=== PATIENT | male | born 1945 | race Caucasian/White ===

== ENCOUNTER 2017-02-07 20:27 | Emergency (ER) | payer MEDICARE, BC ==
--- NOTE | 2017-02-07 20:47 | UC ---
HPI Febrile Illness - HPI Summary HPI Summary: 71 YEAR OLD MALE PRESENTS WITH COMPLAINS OF FEVER, CHILLS, AND BODYACHES. - History of Current Complaint Time Seen by Provider: 02/07/17 20:47 Hx Obtained From: Patient Onset/Duration: Started Hours Ago Timing: Constant Initial Severity: Moderate Current Severity: Moderate Pain Scale Used: 0-10 Numeric - 2 Aggravating Factors: Nothing Alleviating Factors: Nothing - Allergy/Home Medications Allergies/Adverse Reactions: Allergies Allergy/AdvReac Type Severity Reaction Status Date / Time No Known Allergies Allergy Verified 02/07/17 20:48 Home Medications: Home Medications Ascorbic Acid TAB* [Vitamin C TAB*] 1,000 mg PO TID 02/07/17 [History Confirmed 02/07/17] Multiple Vitamins W/ Minerals [Preservision Areds 2 + Mu] 1 cap PO BID 02/07/17 [History Confirmed 02/07/17] PMH/Surg Hx/FS Hx/Imm Hx Endocrine/Hematology History: Reports: Hx Diabetes Cardiovascular History: Reports: Hx Hypertension - Surgical History Surgery Procedure, Year, and Place: cataracts, tumor removed from back, laminectomy of back, retinal detachment repair, umbilical hernia, L ankle fx repair - Social History Alcohol Use: Daily Alcohol Amount: 2-3 wine daily Substance Use Type: Reports: None Smoking Status (MU): Former Smoker Length of Time of Smoking/Using Tobacco: 10 yrs Have You Smoked in the Last Year: No Review of Systems Constitutional: Fever, Chills Skin: Negative Eyes: Negative ENT: Negative Respiratory: Negative Cardiovascular: Negative Gastrointestinal: Negative Genitourinary: Negative Motor: Negative Neurovascular: Negative Musculoskeletal: Negative Neurological: Headache, Weakness Psychological: Negative All Other Systems Reviewed And Are Negative: Yes Physical Exam Triage Information Reviewed: Yes Eye Exam: Normal ENT Exam: Normal Dental Exam: Normal Neck exam: Normal Neck: Positive: 1 Respiratory Exam: Normal Cardiovascular Exam: Normal Abdominal Exam: Normal Musculoskeletal Exam: Normal Neurological Exam: Normal Psychological Exam: Normal Skin Exam: Normal Course/Dx - Diagnoses Clinic Provider Diagnoses: UTI. FEVER. CHILLS Discharge - Discharge Plan Condition: Stable Disposition: HOME Prescriptions: Ciprofloxacin TAB* [Cipro 500 MG TAB*] 500 mg PO BID #28 tab Patient Education Materials: Prostatitis (ED), Urinary Tract Infection in Men ( ED) Referrals: Nirav Lopez MD [Primary Care Provider] - If Needed
[2017-02-07 20:48] VITALS: BP 137/55
[2017-02-07] MEDS ORDERED: Ciprofloxacin TAB* 500 MG PO ONE (21:50)
== END 2017-02-07 22:02 | disposition home or self-care (01) ==
LOC: UCCORT 20:27
DX: N39.0 Urinary tract infection, site not specified (principal); B96.89 Other specified bacterial agents as the cause of diseases classified elsewhere; R50.9 Fever, unspecified; E11.9 Type 2 diabetes mellitus without complications; I10 Essential (primary) hypertension; Z87.891 Personal history of nicotine dependence
CPT/HCPCS: 81003; 87077; 87086; 87186; 87502; 99212; A9270-GY; G0463

== ENCOUNTER 2017-02-28 10:34 | Emergency (ER) | payer MEDICARE, BC ==
[2017-02-28 11:08] VITALS: BP 131/60
--- NOTE | 2017-02-28 11:32 | UC ---
Ear Complaint HPI - HPI Summary HPI Summary: "For the last couple days I've been having intermittent headaches on LEFT side of head around my LEFT ear". Denies fever/chills. Took 2 tab aspirin this morning w/ pain relief from headache. No dizziness. Not light headed. No discharge from ear. No hearing loss . No neuro deficits. No URI Sx. (+) nasal congestion with PND. (+) a friend who is sick with cough. No vision changes. No changes in balance. Sx same as yesterday and not worsened. Pain lasts for short period of time and then go away. No related to head position or breathing [ End ] - History of Current Complaint Chief Complaint: UCGeneralIllness Stated Complaint: LEFT EAR PAIN/HEADACHE,ACHY Time Seen by Provider: 02/28/17 11:11 Hx Obtained From: Patient - Allergies/Home Medications Allergies/Adverse Reactions: Allergies Allergy/AdvReac Type Severity Reaction Status Date / Time No Known Allergies Allergy Verified 02/28/17 11:01 PMH/Surg Hx/FS Hx/Imm Hx Previously Healthy: Yes Endocrine History: Diabetes, Dyslipidemia Cardiovascular History: Hypertension GI/ History: Other - recent UTI Cipro completed Other GI/ History: neurogenic bladder - Surgical History Surgical History: Yes Surgery Procedure, Year, and Place: cataracts, tumor removed from back, laminectomy of back, retinal detachment repair, umbilical hernia, L ankle fx repair. 2006 SPINAL DECOMPRESSION/FUSION SURGERY-[facility]. history of Schwanoma and neurogenic bladder - Family History Known Family History: Positive: None, Other - mother breast cancer - Social History Occupation: Retired Lives: Alone Alcohol Use: Daily Alcohol Amount: 2-3 wine daily Substance Use Type: None Smoking Status (MU): Former Smoker Length of Time of Smoking/Using Tobacco: 10 yrs Have You Smoked in the Last Year: No When Did the Patient Quit Smoking/Using Tobacco: 1978 - Immunization History Most Recent Influenza Vaccination: NONE 2016 Review of Systems ENT: Ear Ache - left Neurological: Headache Is Patient Immunocompromised?: No All Other Systems Reviewed And Are Negative: Yes Physical Exam Triage Information Reviewed: Yes Appearance: Well-Appearing, No Pain Distress, Well-Nourished Vital Signs: Initial Vital Signs Temp 98 F 02/28/17 11:02 Pulse 56 02/28/17 11:02 Resp 18 09/15/17 11:02 BP 131/60 02/28/17 11:02 Pulse Ox 100 02/28/17 11:02 Vital Signs Reviewed: Yes Eye Exam: Normal ENT Exam: Normal ENT: Positive: Pharynx normal, Nasal congestion, TM dull - left. Negative: Tonsillar swelling, Tonsillar exudate Dental Exam: Normal Neck exam: Normal Neck: Positive: 1 Respiratory Exam: Normal Cardiovascular Exam: Normal Musculoskeletal Exam: Normal Neurological Exam: Normal Neurological: Positive: Alert, Muscle Tone Normal - left leg chronically weaker Psychological Exam: Normal Psychological: Positive: Normal Response To Family Skin Exam: Normal Ear Complaint Course/Dx - Course Course Of Treatment: No neuro deficits or red flags. no VILA or dizzyness. No numbness or slurred speech. He is aware if these Sx develop to go to ED . Start antihistamines at this time and fu with PCP - Differential Dx/Diagnosis Provider Diagnoses: Serous AOM Discharge - Discharge Plan Condition: Good Disposition: HOME Prescriptions: Diphenhydramine HCl [Benadryl Allergy 25 MG CAP] 25 mg PO BEDTIME #14 cap Loratadine [Claritin 10 MG CAP] 10 mg PO DAILY #14 cap Patient Education Materials: Serous Otitis Media (ED) Referrals: Nirav Lopez MD [Primary Care Provider] - 4 Days Additional Instructions: If your symptoms worsen then go to the Emergency room
== END 2017-02-28 11:45 | disposition home or self-care (01) ==
LOC: UCCORT 10:34
DX: H65.92 Unspecified nonsuppurative otitis media, left ear (principal)
CPT/HCPCS: 99212; G0463

== ENCOUNTER 2017-08-06 14:28 | Emergency (ER) | payer MEDICARE, BC ==
[2017-08-06 15:45] VITALS: BP 148/70
--- NOTE | 2017-08-06 16:46 | UC ---
Ear Complaint HPI - HPI Summary HPI Summary: Pt states at noon noticed a plastic ring missing from right hearing aide. Pt states concerned in his ear although does not feel it Pt did not stick any object in ear or try to remove no complaints Pt's medications reviewed this visit - History of Current Complaint Chief Complaint: UCEar Stated Complaint: RT EAR COMPLAINT Time Seen by Provider: 08/06/17 16:31 Hx Obtained From: Patient Onset/Duration: Sudden Onset Severity Currently: None Pain Intensity: 0 Pain Scale Used: 0-10 Numeric Aggravating Factors: FB - Allergies/Home Medications Allergies/Adverse Reactions: Allergies Allergy/AdvReac Type Severity Reaction Status Date / Time No Known Allergies Allergy Verified 08/06/17 15:45 Home Medications: Home Medications Amlodipine Besylate/Valsartan [Exforge 10-160 mg-] 1 tab PO DAILY 08/06/17 [ History Confirmed 08/06/17] Loratadine [Claritin 10 MG CAP] 10 mg PO DAILY PRN 08/06/17 [History Confirmed 08/06/17] PMH/Surg Hx/FS Hx/Imm Hx Previously Healthy: Yes - Surgical History Surgical History: Yes Surgery Procedure, Year, and Place: cataracts, tumor removed from back, laminectomy of back, retinal detachment repair, umbilical hernia, L ankle fx repair. 2005 SPINAL DECOMPRESSION/FUSION SURGERY-[facility]. history of Schwanoma and neurogenic bladder - Family History Known Family History: Positive: None, Other - mother breast cancer - Social History Occupation: Retired Lives: With Family Alcohol Use: None Alcohol Amount: 2-3 wine daily Substance Use Type: None Smoking Status (MU): Former Smoker Length of Time of Smoking/Using Tobacco: 10 yrs Have You Smoked in the Last Year: No When Did the Patient Quit Smoking/Using Tobacco: 1978 - Immunization History Most Recent Influenza Vaccination: NONE 2017 Review of Systems ENT: Other - concern for foreign body All Other Systems Reviewed And Are Negative: Yes Physical Exam Triage Information Reviewed: Yes Appearance: Well-Appearing, No Pain Distress, Well-Nourished Vital Signs: Initial Vital Signs Temp 97.8 F 08/06/17 15:41 Pulse 58 08/06/17 15:41 Resp 18 08/06/17 15:41 BP 148/70 08/06/17 15:41 Pulse Ox 96 08/06/17 15:41 Vital Signs Reviewed: Yes Eye Exam: Normal Eyes: Positive: Conjunctiva Clear ENT: Positive: Other - no foreign body in either canal scant cerumen removed small amout of cerumen right ear - no foreign body no erythema no drainage Respiratory: Positive: No respiratory distress, No accessory muscle use Ear Complaint Course/Dx - Course Course Of Treatment: pt concerned for retained fb in right ear from hearing aide. no fb not on exam with good, full visualization. reassuance. return precautions. pt comfortable and in agreement with plan - Differential Dx/Diagnosis Provider Diagnoses: foreign body right ear Discharge - Discharge Plan Condition: Stable Disposition: HOME Patient Education Materials: Ear Foreign Body (ED) Referrals: Nirav Lopez MD [Primary Care Provider] - Additional Instructions: The doctor that evaluated you did not identify any foreign body or hearing aid parts if you ear avoid sticking Qtips of other object in your ear contact your audiolgoist, doctor or return with questions or concerns
== END 2017-08-06 16:49 | disposition home or self-care (01) ==
LOC: UCCORT 14:28
DX: Z03.89 Encounter for observation for other suspected diseases and conditions ruled out (principal)
CPT/HCPCS: 99211; G0463